=== PATIENT | female | born 1975 | race Caucasian/White ===

== ENCOUNTER 2020-04-29 07:56 | Emergency (ER) | payer OTHER, SELFPAY ==
--- NOTE | 2020-04-29 08:02 | ED.GENADULT ---
HPI - General Adult General Chief complaint: Dental/Oral Stated complaint: Painful Teeth Causing Headache Time Seen by Provider: 04/29/20 08:02 Source: patient Mode of arrival: ambulatory Limitations: no limitations History of Present Illness HPI narrative: Patient is a 44-year-old female who presents for evaluation of dental pain. Patient reports left-sided upper dental pain/molar pain over the past 2 weeks. Pain is increased in nature, is causing headache pain. No vision changes, no fever, patient does report some difficulty with chewing due to the pain. 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 She denies any nausea or vomiting. She has been currently trying to take ibuprofen without much improvement in her symptoms. She does not have dental care follow-up at this point. She denies any facial swelling or redness. She denies any neck pain. No chest pain or shortness of breath. No upper respiratory infection type symptoms. Related Data Allergies Allergy/AdvReac Type Severity Reaction Status Date / Time citalopram [From Celexa] Allergy Mild Rash Verified 04/07/19 19:17 duloxetine [From Cymbalta] Allergy Rash Verified 04/07/19 19:16 Review of Systems Review of Systems: Narrative: CONSTITUTIONAL: Denies fever HEENT: Denies facial swelling, redness, reports left upper molar pain CARDIOVASCULAR: Denies chest pain RESPIRATORY: Denies cough or dyspnea. GASTROINTESTINAL: Denies abdominal pain SKIN: Denies rash MUSCULOSKELETAL: Denies back pain NEUROLOGIC: Denies headache [facility] Past Medical History Medical History Dental caries Gallbladder disease Surgical History Surgical History (Updated 04/07/19 @ 19:42 by Jane Martinez) History of cholecystectomy Family History Family History (Updated 10/10/18 @ 11:13 by DOCTOR UNKNOWN) Father Family history of pancreatic cancer, Onset Age: 69 Other Family history of cardiovascular disease Social History Social History (Updated 04/29/20 @ 08:27 by Libby Sullivan MD) Smoking status: Current every day smoker Additional smoking assessment comments: Smokes 1 pack every 3 days Alcohol intake: current Substance use: current Substance use type: amphetamines Occupation/Education: unemployed Gender identity (if verbalized by the patient): Female Exam Narrative: Exam Narrative: GENERAL: Awake, alert, conversant HEAD: Normocephalic, atraumatic. No facial edema or erythema. EYES: PERRLA and EOMI. ENT: Nares clear, no rhinorrhea or epistaxis. Mucous membranes moist. Uvula is midline. Palate is not elevated. Extensive dental caries. Dental caries without abscess identified at or 12, 13, 14. Palate is not elevated. No trismus. No abscess identified. No dental avulsions. NECK: Supple. CHEST: No respiratory distress, breathing even and non labored HEART: Regular rate, sinus rhythm ABDOMEN:Non distended, non tender EXTREMITIES: Normal range of motion. No edema. SKIN: Warm, dry, no rash. NEURO:No focal deficits. Alert and oriented x3 Course Vital Signs Vital signs: Vital Signs Temperature 36.0 C L 04/29/20 08:03 Pulse Rate 115 H 04/29/20 08:03 Respiratory Rate 18 04/29/20 08:03 Blood Pressure 128/73 04/29/20 08:03 Pulse Oximetry 97 04/29/20 08:03 Temperature 36.0 C L 04/29/20 08:03 Pulse Rate 115 H 04/29/20 08:03 Respiratory Rate 18 04/29/20 08:03 Blood Pressure 128/73 04/29/20 08:03 Pulse Oximetry 97 04/29/20 08:03 Medical Decision Making MDM Narrative Medical decision making narrative: Patient's pain is consistent with dental caries. At the time of assessment there are no signs of systemic illness, no focal signs of space-occupying abscess or lesions, no signs of Parviz angina or other concerning retropharyngeal infection. Pt without trismus, no facial edema, no signs of drainable abscess at this point. The pat
[2020-04-29 08:03] VITALS: BP 128/73; PULSE 115; RESP 18; TEMP 36; O2SAT 97
[2020-04-29] MEDS: KETOROLAC (*BKC) 60 MG/2 ML VIAL 30 MG IM (08:37)
== END 2020-04-29 08:43 | disposition home or self-care (01) ==
PROVIDERS: Emergency Provider Emergency Medicine
DX: K02.9 Dental caries, unspecified (principal); F17.210 Nicotine dependence, cigarettes, uncomplicated
CPT/HCPCS: 96372; 99283; J1885

== ENCOUNTER 2020-07-28 15:29 | Emergency (ER) | payer OTHER, SELFPAY ==
--- NOTE | ~2020-07-28 | CT_ITS ---
EXAMINATION: CT soft tissue neck chest w EXAM DATE: 07/28/2020 17:43 INDICATION: Mass at the base of neck. TECHNIQUE: Spiral CT of the neck and chest was performed following intravenous injection of 75 mL Omn ipaque 350. Axial, coronal and sagittal images of the neck were reviewed. Axial, coronal and sagitt al images of the chest were reviewed. Coronal maximum intensity pixel images of chest reviewed. The dose-length product (DLP) for this examination was 508.66 mGy-cm. The exposure was tailored accordi ng to patient size (auto mA exposure control), and iterative reconstruction (ASIR) was used as additi onal dose reduction technique. There is no prior study for comparison. FINDINGS: NECK: Externally placed marker overlying thyroid. There is a 2.8 cm centrally cystic nodule in the r ight thyroid lobe, large enough to recommend ultrasound-guided biopsy. The submandibular and parotid glands are symmetric. There is no cervical lymphadenopathy. There are no masses identified. Th e airway is unremarkable. Parapharyngeal and pre-glottic fat planes are preserved. The opacified vasculature is patent. The orbits are unremarkable. Visualized sinuses and mastoid air cells are well aerated. There is cervical spondylosis. CHEST: There are 3 and 4 mm nodules in the left lower lobe most likely granulomas. 3 mm nodule in the right upper lobe likely granuloma. Minimal lingular and right middle lobe atelectasis. There are no pleural or pericardial effusions. Tracheobronchial tree is patent. There is no mediastinal, lashae r or axillary lymphadenopathy. There is no pneumothorax. Heart normal in size. No evidence of c oronary arterial calcification. Upper abdomen is unremarkable. The bones are unremarkable. IMPRESSION: 1. Right thyroid lobe nodule large enough to recommend ultrasound-guided biopsy. 2. Several small lung nodules likely granulomas. Optional one-year follow-up low-dose chest CT. Reviewed, dictated and finalized at location A. [facility] IMPRESSION: 1. Right thyroid lobe nodule large enough to recommend ultrasound-guided biops y. 2. Several small lung nodules likely granulomas. Optional one-year follow-up l ow-dose chest CT.
[2020-07-28 15:32] VITALS: BP 132/89; PULSE 95; RESP 18; TEMP 36.2; O2SAT 100
--- NOTE | 2020-07-28 16:24 | ED.GENADULT ---
HPI - General Adult General Chief complaint: Unspecified Stated complaint: something wrong with my neck Time Seen by Provider: 07/28/20 15:59 Source: patient Mode of arrival: ambulatory Limitations: no limitations History of Present Illness HPI narrative: This is a 44-year-old female that presents to the emergency department for a mass on her neck x3 weeks. Reports over the last week she feels like she has had difficulty swallowing. Does report a dry cough and some congestion last couple of days. Denies fever, chest pain, shortness of breath. Related Data Home Medications Medication Instructions Recorded Confirmed No Home Medications 07/28/20 07/28/20 Allergies Allergy/AdvReac Type Severity Reaction Status Date / Time citalopram [From Celexa] Allergy Mild Rash Verified 07/28/20 15:34 duloxetine [From Cymbalta] Allergy Rash Verified 07/28/20 15:34 Review of Systems Review of Systems: Narrative: CONSTITUTIONAL: Denies fever ENT: Reports congestion CARDIOVASCULAR: Denies chest pain RESPIRATORY: Reports cough. Denies dyspnea. All systems reviewed & are unremarkable except as noted in HPI and below PMFSH Past Medical History Medical History Dental caries Gallbladder disease Surgical History Surgical History (Updated 04/07/19 @ 19:42 by Jane Martinez) History of cholecystectomy Family History Family History (Updated 10/10/18 @ 11:13 by DOCTOR UNKNOWN) Father Family history of pancreatic cancer, Onset Age: 69 Other Family history of cardiovascular disease Social History Social History (Updated 07/28/20 @ 16:24 by Margaret Hudson PA-C) Smoking status: Current every day smoker Additional smoking assessment comments: Smokes 1 pack every 3 days Alcohol intake: current Substance use: current Substance use type: marijuana and amphetamines Gender identity (if verbalized by the patient): Female Exam Narrative: Exam Narrative: GENERAL: Well-appearing, well-nourished, and in no acute distress. HEAD: Normocephalic, atraumatic. EYES: EOMI. ENT: Nares clear, no rhinorrhea or epistaxis. Mucous membranes moist. Oropharynx without tonsillar hypertrophy exudate or other lesions. Bilateral TMs pearly cuello non-bulging NECK: Supple. No adenopathy. At the base of the neck on the right there is a moderate sized soft tissue mass that is firm and non-mobile CHEST: Clear to auscultation. No respiratory distress. No wheezes rales or rhonchi HEART: Regular rate and rhythm. No murmur heard. Normal peripheral pulses. EXTREMITIES: Normal range of motion. No edema. SKIN: Warm, dry, no rash. NEURO: No focal deficits. Alert and oriented x3. PSYCH: Normal mood and affect Course Consultations Consultation #1: Spoke with Dr. Fernandez about patient and workup who will follow up in clinic. Date: 07/28/20 Time: 19:35 Vital Signs Vital signs: Vital Signs Temperature 97.2 F L 07/28/20 15:32 Pulse Rate 95 07/28/20 15:32 Respiratory Rate 18 07/28/20 15:32 Blood Pressure 132/89 07/28/20 15:32 Pulse Oximetry 100 07/28/20 15:32 Temperature 97.2 F L 07/28/20 15:32 Pulse Rate 78 07/28/20 19:32 Respiratory Rate 18 07/28/20 19:32 Blood Pressure 126/82 07/28/20 19:32 Pulse Oximetry 99 07/28/20 19:32 Medical Decision Making MDM Narrative Medical decision making narrative: Patient presents the emergency department for a mass on her neck that she has noted for the last couple of weeks. She did report some difficulty with swallowing, but is still able to swallow liquids and solids. She is afebrile and nontoxic-appearing. Vitals are stable. CBC and metabolic panel without concerning findings. TSH was low, but T4 is normal. Bedside test is negative. CT scanning of the neck and chest shows a thyroid nodule that will need follow-up with a ultrasound-guided biopsy. Also shows several small lung nodules. Estela
[2020-07-28 16:38] LABS: Basophils Percent Auto 0.6 % (0.2-1.2); Eosinophils Absolute Auto 0.1 K/mm3 (0-0.3); Eosinophils Percent Auto 1.7 % (0-4.4); Hematocrit 37.9 % (37.0-47.0); Hemoglobin 12.7 g/dL (12.0-15.0); Immature Granulocyte Absolute 0.02 K/mm3 (0.00-0.031); Immature Granulocyte Percent A 0.4 % (0-0.5); Lymphocytes Absolute Auto 1.53 K/mm3 (0.9-3.2); Lymphocytes Percent Auto 28.2 % (18.3-44.2); Mean Corpuscular HGB Conc 33.5 g/dl (32-36); Mean Corpuscular Hemoglobin 30.8 pg (26-34); Mean Platelet Volume 8.9 fl (7.4-10.4); Monocytes Absolute Auto 0.5 K/mm3 (0.1-0.6); Monocytes Percent Auto 8.3 % (2.6-8.5); Neutrophils Absolute Auto 3.3 K/mm3 (1.3-6.7); Neutrophils Percent Auto 60.8 % (45.5-73.1); Platelet Count Result 270 k/mm3 (150-375); Red Blood Count 4.12 M/mm3 (4.2-5.4); Red Cell Distribution Width 13.5 % (11.5-14.5); White Blood Count 5.4 K/mm3 (4.5-10.0)
[2020-07-28 16:52] LABS: Alanine Aminotransferase 15 U/L (4-35); Albumin Level 4.3 g/dL (3.5-5.1); Alkaline Phosphatase 52 U/L (38-126); Anion Gap 6 mmol/L (8-16); Aspartate Amino Transferase 18 U/L (14-36); Bilirubin,Total 0.3 mg/dL (0.2-1.3); Blood Urea Nitrogen 13 mg/dL (7-17); Carbon Dioxide 26 mmol/L (22-30); Chloride 107 mmol/L (98-107); Estimated CRCL calculation 67 ml/min; Estimated Glomerular Filt Rate > 60; Glucose 83 mg/dL (65-105); Potassium 3.5 mmol/L (3.4-5.0); Sodium 139 mmol/L (137-145)
[2020-07-28 18:21] LABS: Thyroid Stimulating Hormone Reflex 0.082 uIU/mL (0.465-4.68)
[2020-07-28 18:50] LABS: Free T4 Free Thyroxine Reflex 0.88 ng/dL (0.78-2.19)
[2020-07-28 19:32] VITALS: BP 126/82; PULSE 78; RESP 18; O2SAT 99
[2020-07-28 19:39] LABS: Total Triiodothyronine (T3) 1.29 NG/ML (0.97-1.69)
== END 2020-07-28 19:43 | disposition home or self-care (01) ==
PROVIDERS: Physician Assistant; Emergency Provider Emergency Medicine; PCP Emergency Medicine
DX: E04.1 Nontoxic single thyroid nodule (principal); R91.8 Other nonspecific abnormal finding of lung field
CPT/HCPCS: 36415; 70491; 71260; 80053; 81025; 84439; 84443; 84480; 85025; 99284; Q9967